=== PATIENT | female | born 1970 | race Caucasian/White ===

== ENCOUNTER 2017-11-10 08:16 | Outpatient (CLI) | payer BC | END 2017-11-10 08:17 | disposition home or self-care (01) | LOC: BICMAMMO 08:16 | PROVIDERS: ATTEND Obstetrics & Gynecology | DX: N64.59 Other signs and symptoms in breast (principal); R92.8 Other abnormal and inconclusive findings on diagnostic imaging of breast | CPT/HCPCS: G0279 ==

== ENCOUNTER → 2017-11-15 | Day surgery (SDC) | payer BC | LOC: BICULT 09:02 | PROVIDERS: ATTEND Obstetrics & Gynecology | DX: N60.22 Fibroadenosis of left breast (principal) | CPT/HCPCS: 19083; 19100; 76942; 88173; 88305 ==

== ENCOUNTER 2018-05-30 08:16 | Outpatient (CLI) | payer BC | END 2018-05-30 08:17 | disposition home or self-care (01) | LOC: BICMAMMO 08:16 | PROVIDERS: ATTEND Student in an Organized Health Care Education/Training Program | DX: N63.22 Unspecified lump in the left breast, upper inner quadrant (principal); Z80.3 Family history of malignant neoplasm of breast | CPT/HCPCS: 77066; G0279 ==

== ENCOUNTER 2018-11-30 08:52 | Outpatient (CLI) | payer BC ==
--- NOTE | 2018-11-30 10:11 | ULT ---
LEFT BREAST ULTRASOUND: History: Mass seen at the 10 o'clock position of the left breast on prior ultrasound. Comparison: 05-30-18, 11-10-17 Technique: Multiplanar grayscale and color doppler images were obtained in a targeted ultrasound of t he left breast at the 10 o'clock position. FINDINGS: There is a well circumscribed hypoechoic lesion at the 10 o'clock position of the left breast measuri ng 4 mm in greatest dimension. This does not demonstrate posterior shadowing. This has slightly decre ased in size compared to the initial ultrasound and appears stable compared to the ultrasound from . IMPRESSION: BIRADS category 3 - probably benign finding. A follow up ultrasound in one year is recommended to ens ure stability of this likely benign lesion for two years. POS: [facility]
== END 2018-11-30 08:53 | disposition home or self-care (01) ==
LOC: BICULT 08:52
PROVIDERS: ATTEND Student in an Organized Health Care Education/Training Program
DX: N63.22 Unspecified lump in the left breast, upper inner quadrant (principal)